=== PATIENT | male | born 1960 | race Caucasian/White ===

== ENCOUNTER 2018-05-11 10:07 | Emergency (ER) | payer OTHER ==
--- NOTE | 2018-05-11 11:58 | ED Physician Documentation ---
PD HPI URI - Stated complaint Stated Complaint: FEVER/BODY ACHES - Chief complaint Chief Complaint: General - History obtained from History obtained from: Patient - History of Present Illness Timing duration: Days (4) Timing details: Still present Associated symptoms: Chills, Nasal congestion, Dry cough Contributing factors: Travel (Lives in [place], performing contract work on [facility].) - Treatment prior to arrival Treatment prior to arrival: OTC cough medication, without relief. - Additional information Additional information: The patient is a 58-year-old male who presents with chills, congestion, and nonproductive cough of 4 days duration. He denies chest pain, shortness of breath, abdominal pain, or vomiting. He has been using [id number] medication, without relief. He does not smoke cigarettes. 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 Review of Systems Constitutional: reports: Chills, Myalgias Eyes: denies: Irritation Ears: reports: Ear pain Nose: reports: Congestion Throat: denies: Sore throat Cardiac: denies: Chest pain / pressure Respiratory: reports: Cough. denies: Dyspnea GI: reports: Diarrhea. denies: Abdominal Pain, Nausea, Vomiting : denies: Dysuria Skin: denies: Rash Musculoskeletal: denies: Back pain Neurologic: reports: Headache (mild). denies: Focal weakness, Numbness PD PAST MEDICAL HISTORY - Past Medical History Past Medical History: Yes Endocrine/Autoimmune: None Musculoskeletal: Other Other Past Medical History: Degenerative joint disease - Past Surgical History Past Surgical History: Yes General: Other Ortho: Knee replacement, Other - Present Medications Home Medications: Ambulatory Orders Medication Instructions Recorded Confirmed Benzonatate [Tessalon Perle] 100 - 200 mg PO TID PRN #30 capsule 05/11/18 - Allergies Allergies/Adverse Reactions: Allergies Allergy/AdvReac Type Severity Reaction Status Date / Time No Known Drug Allergies Allergy Verified 05/11/18 10:09 - Social History Does the pt smoke?: No Smoking Status: Never smoker Does the pt drink ETOH?: No Does the pt have substance abuse?: No - Immunizations Immunizations are current?: Yes - POLST Patient has POLST: No PD ED PE NORMAL - Vitals Vital signs reviewed: Yes (normal) - General General: Alert and oriented X 3, Well developed/nourished - HEENT HEENT: Atraumatic, Pharynx benign - Neck Neck: No adenopathy, No JVD - Cardiac Cardiac: RRR, No murmur - Respiratory Respiratory: No respiratory distress, Clear bilaterally - Abdomen Abdomen: Soft, Non tender - Back Back: No CVA TTP - Derm Derm: No rash - Extremities Extremities: No edema, No calf tenderness / cord - Neuro Neuro: Alert and oriented X 3, No motor deficit, Normal speech Results - Vitals Vitals: Oxygen O2 Source Room air PD MEDICAL DECISION MAKING - ED course Complexity details: considered differential, d/w patient ED course: The patient's presentation is most consistent with viral upper respiratory infection. His presentation does not suggest pneumonia, pharyngitis, or meningitis. Antibiotic therapy is not clinically indicated, and I discussed this with the patient. He is being discharged with a prescription for Tessalon. I discussed with him the expected course of illness, symptomatic treatment and outpatient follow-up, as well as potentially worrisome signs or symptoms that should prompt reevaluation in the emergency department. Departure - Departure Disposition: 01 Home, Self Care Clinical Impression: Viral URI with cough Condition: Stable Instructions: ED Upper Resp Infec No Abx Tx Prescriptions: Benzonatate [Tessalon Perle] 100 - 200 mg PO TID PRN #30 capsule PRN Reason: Cough Comments: Your symptoms are most consistent with a viral upper respiratory infection. Antibiotics are not clinically indicated for this type of viral infection. Treatment should be geared toward managing symptoms: Drink plenty of fluids. Use Tylenol or ibuprofen as needed for fever or discomfort. Wash your hands frequently, and cover your cough. Follow up with your primary physician, or return to the emergency department, if not improving within 1-2 weeks. Return to the emergency department if you develop increasing difficulty breathing, or otherwise worsening symptoms. Discharge Date/Time: 05/11/18 12:08
[2018-05-11 12:06] VITALS: BP 128/76
== END 2018-05-11 12:08 | disposition home or self-care (01) ==
LOC: ED 10:07
DX: J06.9 Acute upper respiratory infection, unspecified (principal)
CPT/HCPCS: 99283